=== PATIENT | male | born 1960 | race African-American/Black ===

== ENCOUNTER 2016-12-10 16:26 | Emergency (ER) | payer MEDICAID, OTHER ==
[~2016-12-10] VITALS: Ht 170.2 cm; Wt 70.3 kg
[2016-12-10 16:44] VITALS: BP 147/99
== END 2016-12-10 17:47 | disposition home or self-care (01) ==
LOC: ER 16:34
DX: M25.512 Pain in left shoulder (principal); Z76.0 Encounter for issue of repeat prescription; Z48.02 Encounter for removal of sutures; F17.210 Nicotine dependence, cigarettes, uncomplicated

== ENCOUNTER 2017-03-16 11:13 | Emergency (ER) | payer MEDICAID ==
[~2017-03-16] VITALS: Ht 170.2 cm; Wt 70.3 kg
[2017-03-16 11:48] VITALS: BP 151/106
[2017-03-16] MEDS ORDERED: ONDANSETRON HCL 4 MG/2 ML VIAL IM ONE (12:00)
[2017-03-16] MEDS ORDERED: MORPHINE SULF INJ 2 MG/ML SYRINGE 1ML IM ONE (12:00)
== END 2017-03-16 12:46 | disposition home or self-care (01) ==
LOC: ER 11:13
DX: M54.2 Cervicalgia (principal); G89.29 Other chronic pain; M79.602 Pain in left arm; M79.601 Pain in right arm; J02.9 Acute pharyngitis, unspecified; F17.210 Nicotine dependence, cigarettes, uncomplicated; V89.0XXA Person injured in unspecified motor-vehicle accident, nontraffic, initial encounter; Y93.89 Activity, other specified; Y92.89 Other specified places as the place of occurrence of the external cause; Y99.8 Other external cause status
CPT/HCPCS: 96372; 99284; J2270; J2405

== ENCOUNTER 2017-04-01 11:16 | Emergency (ER) | payer MEDICAID ==
[~2017-04-01] VITALS: Ht 170.2 cm; Wt 70.3 kg
[2017-04-01 12:00] VITALS: BP 135/102
[2017-04-01] MEDS ORDERED: HYDROcodone-ACET 7.5/325MG TAB PO ONE (13:00)
== END 2017-04-01 13:07 | disposition home or self-care (01) ==
LOC: ER 11:16
DX: G89.29 Other chronic pain (principal); M54.5 Low back pain; M54.2 Cervicalgia; Z76.0 Encounter for issue of repeat prescription